=== PATIENT | female | born 2000 | race African-American/Black ===

== ENCOUNTER 2021-04-26 17:24 | Inpatient (IN) | payer OTHER ==
[2021-04-26 18:33] LABS: #Eosinphils 0.2 10x3/uL (0.0-0.5); #Neutrophils 7.9 10x3/uL (1.5-8.4); %Basophils 0.2 % (0.0-2.0); %Eosinophils 1.8 % (0.0-6.0); %Lymphocytes 14.9 % (18.0-47.0); %Monocytes 9.4 % (0.0-10.0); %Neutrophils 73.1 % (40.0-75.0); Hemoglobin 6.8 g/dL (12.0-15.5); Mean Corpuscular HGB CONC 29.6 g/dL (32.0-36.0); Mean Corpuscular Hemoglobin 20.7 pg (27.0-33.0); Mean Corpuscular Volume 69.9 fl (81.6-98.3); Platelet Count 309 10x3/uL (150-450); RBC Distribution Width 17.2 % (11.5-14.5); Red Blood Cell (RBC) Count 3.29 10x6/uL (3.90-5.03); White Blood Cell (WBC) Count 10.8 10x3/uL (3.5-10.5)
[2021-04-26 18:48] LABS: ALT (SGPT) 114 U/L (8-55); AST (SGOT) 374 U/L (5-30); Albumin 3.3 g/dL (3.5-5.0); Alkaline Phosphatase 77 U/L (40-100); Anion Gap 13 mmol/L (10-20); BUN (Urea Nitrogen) Less than 4 mg/dL (8.4-21.0); Bilirubin, Total 0.4 mg/dL (0.2-1.2); Calc. Creatinine Clearance 0 mL/min (70-130); Calcium 8.9 mg/dL (7.8-10.44); Carbon Dioxide 21 mmol/L (22-29); Chloride 109 mmol/L (98-107); Globulin 3.1 g/dL (2.4-3.5); Glucose 85 mg/dL (70-105); Protein, Total 6.4 g/dL (6.0-8.3); Sodium 141 mmol/L (136-145)
[2021-04-26 18:49] LABS: Acetaminophen Less than 6.0 mcg/mL (10.0-30.0); Alcohol Less than 10 mg/dL (Less than 10); Salicylate Less than 8.0 mg/dL (15.0-30.0)
[2021-04-26 18:50] LABS: Potassium 1.8 mmol/L (3.5-5.1)
[2021-04-26 19:00] LABS: Anisocytosis SLIGHT = 6-15 cells (100X) (0-5/hpf); Poikilocytosis SLIGHT = 6-15 cells (100X) (0-5/hpf)
[2021-04-26 19:01] LABS: Hypochromia MODERATE=16-30 cells (100X) (0-5/hpf); Microcytosis MODERATE=15-30 cells (100X) (0-5/hpf); Polychromasia SLIGHT = 2-3 cells (100X) (0-2/hpf)
[2021-04-26 19:02] LABS: Large Platelets SLIGHT; Platelet Morphology Comment Appears Adequate; Stomatocytes SLIGHT = 2-5 cells (100X) (0-1/hpf); Tear Drops SLIGHT = 2-5 cells (100X) (0-1/hpf)
[2021-04-26 19:05] LABS: CK (CPK) 12410 U/L (29-168)
[2021-04-26] MEDS ORDERED: Potassium Chloride 20 MEQ TAB ONE (19:33)
[2021-04-26] MEDS ORDERED: Potassium Chloride 20 MEQ/100 ML PREMIX BAG ONE (19:34)
[2021-04-26 20:04] LABS: Bilirubin Neg (Negative); Blood, Urine 250 (Negative); Clarity Clear (Clear); Glucose, Urine (Dipstick) Normal (Negative); Ketone, Urine Negative (Negative); Leukocyte Negative (Negative); Nitrite Negative (Negative); Protein, Urine (Dipstick) 100 mg/dl (Neg-Trace); Urobilinogen Normal mg/dL (Less than 2)
[2021-04-26 20:10] LABS: Amphetamine Not Detected (NotDetected); Barbiturates Screen Not Detected (NotDetected); Benzodiazepine Screen Not Detected (NotDetected); Cocaine Metabolite Screen Not Detected (NotDetected); Methadone Not Detected (NotDetected); Methamphetamine Not Detected (NotDetected); Opiate Screen Not Detected (NotDetected); Oxycodone Screen Not Detected (NotDetected); Phencyclidine (PCP) Not Detected (NotDetected); THC/Cannabinoid Screen Not Detected (NotDetected); Tricyclic Screen Not Detected (NotDetected)
[2021-04-26 20:12] LABS: Iron 22 ug/dL (50-170); Iron Binding Capacity, Total 593 mcg/dL (265-497)
[2021-04-26 20:22] LABS: Bacteria/HPF 2+ HPF (None Seen); WBC/HPF 0-3 HPF (0-3)
[2021-04-26 20:49] LABS: SARS-CoV-2 NAA Rapid Test Not Detected (NotDetected)
[2021-04-26] MEDS ORDERED: Sodium Chloride 0.9% 1,000 ML IV SCH (21:00)
[2021-04-26 21:27] LABS: Magnesium 1.9 mg/dL (1.7-2.2)
[2021-04-26 21:40] LABS: Ferritin 9.52 ng/mL (10-291)
[2021-04-26 23:05] VITALS: BMI 29.2
[2021-04-26] MEDS: Potassium Chloride 20 MEQ in Premix Bag 1 BAG IVPB SCH (23:18)
[2021-04-26] MEDS: Sodium Chloride 0.9% 1,000 ML IV SCH (23:18)
[2021-04-27] MEDS ORDERED: FLU VACC QS2021-22(6MOS UP)/PF 60 MCG/0.5 ML SYRINGE IM ONE (00:45)
[2021-04-27 01:17] LABS: Potassium 1.9 mmol/L (3.5-5.1)
[2021-04-27] MEDS: Potassium Chloride 20 MEQ in Premix Bag 1 BAG IVPB SCH ×3 (01:21→06:17)
[2021-04-27] MEDS ORDERED: Potassium Chloride 20 MEQ TAB PO SCH (01:30)
[2021-04-27] MEDS: Sodium Chloride 0.9% 1,000 ML IV SCH ×2 (05:28→07:57)
[2021-04-27] MEDS ORDERED: Electrolyte Replacement Protocol 1 EACH FS PRN (06:55)
[2021-04-27 06:56] LABS: #Eosinphils 0.2 10x3/uL (0.0-0.5); #Neutrophils 8.5 10x3/uL (1.5-8.4); %Basophils 0.4 % (0.0-2.0); %Eosinophils 1.6 % (0.0-6.0); %Lymphocytes 13.5 % (18.0-47.0); %Monocytes 9.1 % (0.0-10.0); %Neutrophils 74.9 % (40.0-75.0); Hemoglobin 8.1 g/dL (12.0-15.5); Mean Corpuscular Hemoglobin 22.1 pg (27.0-33.0); Mean Corpuscular Volume 73.8 fl (81.6-98.3); Mean Platelet Volume 10.8 fl (7.4-10.4); Platelet Count 266 10x3/uL (150-450); RBC Distribution Width 18.4 % (11.5-14.5); Red Blood Cell (RBC) Count 3.66 10x6/uL (3.90-5.03); White Blood Cell (WBC) Count 11.3 10x3/uL (3.5-10.5)
[2021-04-27 07:17] LABS: Anion Gap 12 mmol/L (10-20); BUN (Urea Nitrogen) Less than 4 mg/dL (8.4-21.0); Calc. Creatinine Clearance 230 mL/min (70-130); Calcium 8.3 mg/dL (7.8-10.44); Carbon Dioxide 19 mmol/L (22-29); Chloride 114 mmol/L (98-107); Glucose 72 mg/dL (70-105); Sodium 143 mmol/L (136-145)
[2021-04-27 07:21] LABS: Potassium 2.1 mmol/L (3.5-5.1)
[2021-04-27] MEDS ORDERED: Magnesium 2 GM/50 ML 2 GM in Premix Bag 1 BAG IVPB SCH (08:00)
[2021-04-27 08:01] LABS: HIV (1/2) Antibody/Antigen Non-Reactive (NonReactive); HIV 1/2 INDEX 0.09 S/CO (<1.00); Hep B Surf Ag Non-Reactive S/CO (NonReactive); Magnesium 1.9 mg/dL (1.7-2.2); Syphilis Antibody Nonreactive (Nonreactive); Syphilis Antibody Index 0.09 S/CO (<1.00 Non-Reactive)
[2021-04-27] MEDS: 1/2 NS w/KCL 20 mEq 1,000 ML IV SCH ×2 (10:25→19:50)
[2021-04-27 12:51] LABS: Potassium 3.6 mmol/L (3.5-5.1)
[2021-04-27 13:02] LABS: HBSAg Index 0.19 S/CO (0-0.99)
[2021-04-27 15:31] LABS: Glucose, Urine (Quantitative) Less than 5 mg/dl (1-15); Potassium, Urine Less than 10.0 mmol/L; Sodium, Urine 61 mmol/L (Not Available); Urea Nitrogen, Random Urine 71 mg/dl
[2021-04-27] MEDS: Potassium Bicarbonate/Cit Ac 20 MEQ TAB PO SCH (16:55)
[2021-04-27] MEDS: Magnesium Oxide 250 MG TAB PO SCH (19:50)
[2021-04-28 05:48] LABS: Anion Gap 12 mmol/L (10-20); BUN (Urea Nitrogen) Less than 4 mg/dL (8.4-21.0); Calc. Creatinine Clearance 239 mL/min (70-130); Calcium 8.4 mg/dL (7.8-10.44); Carbon Dioxide 20 mmol/L (22-29); Chloride 110 mmol/L (98-107); Glucose 79 mg/dL (70-105); Sodium 140 mmol/L (136-145)
[2021-04-28 05:56] LABS: Potassium 1.9 mmol/L (3.5-5.1)
[2021-04-28] MEDS ORDERED: Magnesium 2 GM/50 ML 2 GM in Premix Bag 1 BAG IVPB SCH (06:00)
[2021-04-28] MEDS: 1/2 NS w/KCL 20 mEq 1,000 ML IV SCH (06:25)
[2021-04-28] MEDS: Potassium Chloride 20 MEQ in Premix Bag 1 BAG IVPB SCH ×6 (06:26→21:57)
[2021-04-28] MEDS: Potassium Bicarbonate/Cit Ac 20 MEQ TAB PO SCH ×2 (09:24→17:12)
[2021-04-28] MEDS: Magnesium Oxide 250 MG TAB PO SCH ×2 (09:24→19:41)
[2021-04-28] MEDS ORDERED: Potassium Chloride 20 MEQ TAB PO SCH (09:45)
[2021-04-28 12:32] LABS: Potassium 2.2 mmol/L (3.5-5.1)
[2021-04-28 16:16] LABS: Anion Gap 11 mmol/L (10-20); BUN (Urea Nitrogen) Less than 4 mg/dL (8.4-21.0); Calc. Creatinine Clearance 230 mL/min (70-130); Calcium 8.8 mg/dL (7.8-10.44); Carbon Dioxide 20 mmol/L (22-29); Chloride 109 mmol/L (98-107); Glucose 95 mg/dL (70-105); Sodium 138 mmol/L (136-145)
[2021-04-28 16:33] LABS: Potassium 2.1 mmol/L (3.5-5.1)
[2021-04-29] MEDS ORDERED: 1/2 NS w/KCL 20 mEq 1,000 ML ONE (02:35)
[2021-04-29] MEDS: 1/2 NS w/KCL 20 mEq 1,000 ML IV SCH ×4 (02:36→23:19)
[2021-04-29 05:50] LABS: Anion Gap 12 mmol/L (10-20); BUN (Urea Nitrogen) Less than 4 mg/dL (8.4-21.0); Calc. Creatinine Clearance 273 mL/min (70-130); Calcium 8.2 mg/dL (7.8-10.44); Carbon Dioxide 21 mmol/L (22-29); Chloride 109 mmol/L (98-107); Glucose 79 mg/dL (70-105); Sodium 140 mmol/L (136-145)
[2021-04-29 05:52] LABS: Phosphorus 2.6 mg/dL (2.3-4.7)
[2021-04-29 05:57] LABS: Potassium 2.3 mmol/L (3.5-5.1)
[2021-04-29] MEDS ORDERED: Magnesium 2 GM/50 ML 2 GM in Premix Bag 1 BAG IVPB SCH (06:15)
[2021-04-29] MEDS: Potassium Chloride 20 MEQ in Premix Bag 1 BAG IVPB SCH ×4 (06:31→13:30)
[2021-04-29] MEDS: Potassium Bicarbonate/Cit Ac 20 MEQ TAB PO SCH ×2 (09:02→16:35)
[2021-04-29] MEDS: Magnesium Oxide 250 MG TAB PO SCH ×2 (09:02→20:50)
[2021-04-29 10:34] LABS: Anion Gap 11 mmol/L (10-20); BUN (Urea Nitrogen) Less than 4 mg/dL (8.4-21.0); Calc. Creatinine Clearance 244 mL/min (70-130); Calcium 8.5 mg/dL (7.8-10.44); Carbon Dioxide 22 mmol/L (22-29); Chloride 109 mmol/L (98-107); Glucose 126 mg/dL (70-105); Sodium 139 mmol/L (136-145)
[2021-04-29 10:49] LABS: Potassium 2.9 mmol/L (3.5-5.1)
[2021-04-29 18:11] LABS: Potassium 3.3 mmol/L (3.5-5.1)
[2021-04-29] MEDS ORDERED: Acetaminophen 325 MG TAB PO SCH (22:30)
[2021-04-30 05:04] LABS: Anion Gap 12 mmol/L (10-20); BUN (Urea Nitrogen) Less than 4 mg/dL (8.4-21.0); Calc. Creatinine Clearance 279 mL/min (70-130); Calcium 8.5 mg/dL (7.8-10.44); Carbon Dioxide 21 mmol/L (22-29); Chloride 109 mmol/L (98-107); Glucose 79 mg/dL (70-105); Sodium 139 mmol/L (136-145)
[2021-04-30] MEDS ORDERED: Magnesium 2 GM/50 ML 2 GM in Premix Bag 1 BAG IVPB SCH (05:15)
[2021-04-30] MEDS: Potassium Chloride 20 MEQ in Premix Bag 1 BAG IVPB SCH ×2 (05:34→09:10)
[2021-04-30] MEDS: 1/2 NS w/KCL 20 mEq 1,000 ML IV SCH ×2 (09:09→18:27)
[2021-04-30] MEDS: Magnesium Oxide 250 MG TAB PO SCH ×2 (09:10→20:33)
[2021-04-30] MEDS: Potassium Bicarbonate/Cit Ac 20 MEQ TAB PO SCH ×2 (09:10→17:16)
[2021-04-30 13:06] LABS: Potassium 4.1 mmol/L (3.5-5.1)
[2021-04-30] MEDS ORDERED: Acetaminophen 325 MG TAB PO PRN (20:03)
[2021-05-01 05:44] LABS: Anion Gap 11 mmol/L (10-20); BUN (Urea Nitrogen) 4 mg/dL (8.4-21.0); Calc. Creatinine Clearance 250 mL/min (70-130); Calcium 8.6 mg/dL (7.8-10.44); Carbon Dioxide 22 mmol/L (22-29); Chloride 109 mmol/L (98-107); Glucose 77 mg/dL (70-105); Potassium 3.6 mmol/L (3.5-5.1); Sodium 138 mmol/L (136-145)
[2021-05-01] MEDS: 1/2 NS w/KCL 20 mEq 1,000 ML IV SCH (05:57)
[2021-05-01] MEDS ORDERED: Magnesium 2 GM/50 ML 2 GM in Premix Bag 1 BAG IVPB SCH (06:00)
[2021-05-01 06:17] LABS: CK (CPK) 17662 U/L (29-168)
[2021-05-01] MEDS: Potassium Bicarbonate/Cit Ac 20 MEQ TAB PO SCH (10:17)
[2021-05-01] MEDS: Magnesium Oxide 250 MG TAB PO SCH ×2 (10:17→20:15)
[2021-05-01] MEDS: Potassium Chloride 20 MEQ in Lactated Ringer's 1,000 ML IV SCH (13:54)
[2021-05-01] MEDS: Potassium Chloride 20 MEQ TAB PO SCH (17:18)
[2021-05-02] MEDS: Potassium Chloride 20 MEQ in Lactated Ringer's 1,000 ML IV SCH ×2 (00:04→11:53)
[2021-05-02 04:31] LABS: Anion Gap 11 mmol/L (10-20); BUN (Urea Nitrogen) 5 mg/dL (8.4-21.0); Calc. Creatinine Clearance 255 mL/min (70-130); Calcium 8.5 mg/dL (7.8-10.44); Carbon Dioxide 22 mmol/L (22-29); Chloride 108 mmol/L (98-107); Glucose 75 mg/dL (70-105); Magnesium 1.8 mg/dL (1.7-2.2); Potassium 4.2 mmol/L (3.5-5.1); Sodium 137 mmol/L (136-145)
[2021-05-02] MEDS ORDERED: Magnesium 2 GM/50 ML 2 GM in Premix Bag 1 BAG IVPB SCH (05:30)
[2021-05-02] MEDS: Potassium Chloride 20 MEQ TAB PO SCH ×2 (08:52→16:05)
[2021-05-02] MEDS: Magnesium Oxide 250 MG TAB PO SCH (08:53)
[2021-05-02 17:50] VITALS: TEMP 98.1
[2021-05-02 20:49] VITALS: BP 140/72
== END 2021-05-02 21:11 | disposition home or self-care (01) | DRG 832 ==
LOC: CSHERS 17:24 → CSHIMCU 22:51 → CSHTELE 04-27 12:53
PROVIDERS: ADMIT Family Medicine; ATTEND Internal Medicine
PROC: 30233N1 Transfusion of Nonautologous Red Blood Cells into Peripheral Vein, Percutaneous Approach (ICD-10-PCS; principal; 2021-04-26)
DX: O99.282 Endocrine, nutritional and metabolic diseases complicating pregnancy, second trimester (principal); M62.82 Rhabdomyolysis; E87.6 Hypokalemia; D50.9 Iron deficiency anemia, unspecified; O99.012 Anemia complicating pregnancy, second trimester; Z3A.22 22 weeks gestation of pregnancy; O99.891 Other specified diseases and conditions complicating pregnancy; Z20.822 Contact with and (suspected) exposure to COVID-19; Z91.018 Allergy to other foods; Z79.899 Other long term (current) drug therapy; J45.20 Mild intermittent asthma, uncomplicated; O99.512 Diseases of the respiratory system complicating pregnancy, second trimester; O34.211 Maternal care for low transverse scar from previous cesarean delivery; O30.002 Twin pregnancy, unspecified number of placenta and unspecified number of amniotic sacs, second trimester; E86.0 Dehydration
CPT/HCPCS: 36415; 36430; 76810; 76815; 76816; 80048; 80053; 80306; 80307; 81003; 81015; 82550; 82607; 82728; 82746; 82945; 83540; 83550; 83735; 83935; 84100; 84132; 84133; 84300; 84540; 85025; 85046; 86762; 86780; 86850; 86900; 86901; 87340; 87389; 93005; 93010; 96365; 96366; J3475; J3480; J7050; J7120; P9016; U0002